=== PATIENT | male | born 1985 | race African-American/Black ===

== ENCOUNTER 2018-06-23 08:52 | Emergency (ER) | payer SELFPAY ==
[2018-06-23] MEDS ORDERED: Sodium Chloride 0.9% 10 ML Syringe FLUSH PRN (09:14)
[2018-06-23] MEDS ORDERED: Sodium Chloride 0.9% 2.5 ML Syringe FLUSH PRN (09:14)
[2018-06-23] MEDS ORDERED: Ketorolac 30 MG/ML SDV IVPUSH ONE (09:14)
[2018-06-23] MEDS ORDERED: Aspirin 81 MG Tab.Chew PO ONE (09:14)
--- NOTE | 2018-06-23 09:17 | EDM.PDOC ---
ED HPI GENERAL MEDICAL PROBLEM - General Chief Complaint: Chest Pain Stated Complaint: CHEST PAIN Time Seen by Provider: 06/23/18 09:09 - History of Present Illness INITIAL COMMENTS - FREE TEXT/NARRATIVE: HISTORY AND PHYSICAL: History of present illness: The patient is a healthy 32-year-old male with no cardiac or pulmonary disease who presents with complaints of midsternal chest discomfort which he describes as an achy and occasional sharp pain has been constant for 2 days. It does not radiate and is not associated with nausea vomiting shortness of breath or diaphoresis. The patient says he is very active and works in the [email or web address] and says with activity is never had chest pain before and this chest pain did not start specifically when he was doing activities but was gradual in onset. He says certain movements will make it worse. He has had a slight cough but no fevers and the cough is not productive. He's eating and drinking normally. He has no upper extremity weakness numbness or tingling. He's had no direct trauma other than his usual work. He has no significant social history but does say that his father had heart disease in his 40s and he thought maybe he had his first surgery at that time. He told the nurse that he was not sure if his father actually had a heart surgery so it is unclear to me which is actually a valid statement. The patient is eating and drinking normally and currently has says the pain is very mild and he has not been taking anything for the pain over -the-counter. He has no leg pain or swelling Review of systems: As per history of present illness and below otherwise all systems reviewed and negative. Past medical history: As per history of present illness and as reviewed below otherwise noncontributory. Surgical history: As per history of present illness and as reviewed below otherwise noncontributory. Social history: No reported history of drug or alcohol abuse. Family history: As per history of present illness and as reviewed below otherwise noncontributory. Physical exam: General: Well-developed well-nourished man who is nontoxic and vital signs are noted by me HEENT: Atraumatic, normocephalic, negative for conjunctival pallor or scleral icterus, mucous membranes moist, throat clear, neck supple, nontender, trachea midline. Lungs: Clear to auscultation, breath sounds equal bilaterally, chest with mild tenderness on palpation of the costochondral areas bilaterally in the upper chest wall but there is no lateral chest wall tenderness and there is no defects deformities or crepitus. When I palpate these areas the patient says this does reproduce his pain. He has no worker breathing wheezing or stridor Heart: S1S2, regular, negative for clicks, rubs, or JVD. Abdomen: Soft, nondistended, nontender. Negative for masses or hepatosplenomegaly. NABS Pelvis: Stable nontender. Genitourinary: Deferred. Rectal: Deferred. Extremities: Atraumatic, negative for cords or calf pain. Neurovascular unremarkable. No pedal edema or leg asymmetry Neuro: Awake, alert, oriented. Cranial nerves II through XII unremarkable. Cerebellum unremarkable. Motor and sensory unremarkable throughout. Exam nonfocal. Diagnostics: EKG CBC CMP troponin chest x-ray influenza swab Therapeutics: IV O2 monitor aspirin Toradol Patient was resting with eyes closed and sleeping on my reevaluation. He says his pain is much improved with the Toradol and aspirin. He confirms that he does have a provider back at home but he is here for work for the next 10 days. I've advised for observation admission due to his father's history although it feels very reproducible in character on my examination. He declines admission at this time saying that he has to get back to work and he will return for any problems or issues. He understands my concerns and accepts them. Impression: Atypical chest pain, musculoskeletal chest pain Definitive disposition and diagnosis as appropriate pending reevaluation and review of above. Chest pain Pain Score (Numeric/FACES): 6 - Related Data Allergies Allergy/AdvReac Type Severity Reaction Status Date / Time No Known Allergies Allergy Verified 06/23/18 09:05 Home Meds: Home Meds . [No Known Home Meds] 06/23/18 [History] Past Medical History - Past Health History Medical/Surgical History: Denies Medical/Surgical History - Infectious Disease History Infectious Disease History: Reports: None Social & Family History - Family History Family Medical History: Noncontributory - Tobacco Use Smoking Status *Q: Never Smoker - Caffeine Use Caffeine Use: Reports: Coffee - Recreational Drug Use Recreational Drug Use: No ED ROS GENERAL - Review of Systems Review Of Systems: ROS reveals no pertinent complaints other than HPI. ED EXAM, GENERAL - Physical Exam Exam: See Below (See dictation) Course - Vital Signs Last Recorded V/S: Last Vital Signs Temp 36.2 C 06/23/18 09:05 Pulse 87 06/23/18 09:05 Resp 15 06/23/18 09:05 BP 124/71 06/23/18 09:05 Pulse Ox 99 06/23/18 09:05 - Orders/Labs/Meds Orders: Active Orders 24 hr Category Date Time Status Cardiac Monitoring [RC] . DIRECTED Care 06/23/18 09:13 Active EKG Documentation Completion [RC] STAT Care 06/23/18 09:13 Active Oxygen Therapy, ED [RC] ASDIRECTED Care 06/23/18 09:13 Active Pulse Oximetry [RC] ASDIRECTED Care 06/23/18 09:13 Active Sodium Chloride 0.9% [Saline Flush] Med 06/23/18 09:14 Active 10 ml FLUSH ASDIRECTED PRN Sodium Chloride 0.9% [Saline Flush] Med 06/23/18 09:14 Active 2.5 ml FLUSH ASDIRECTED PRN Saline Lock Insert [OM.PC] Stat Oth 06/23/18 09:13 Ordered Medication Orders Sodium Chloride (Saline Flush) 10 ml FLUSH ASDIRECTED PRN PRN Reason: Keep Vein Open Last Admin: 06/23/18 09:19 Dose: 10 ml Sodium Chloride (Saline Flush) 2.5 ml FLUSH ASDIRECTED PRN PRN Reason: Keep Vein Open Last Admin: 06/23/18 09:19 Dose: 2.5 ml Labs: Laboratory Tests 06/23/18 06/23/18 Range/Units 09:00 09:00 WBC 5.15 (4.0-11.0) K/uL RBC 4.99 (4.50-5.90) M/uL Hgb 15.6 (13.0-17.0) g/dL Hct 43.7 (38.0-50.0) % MCV 87.6 (80.0-98.0) fL MCH 31.3 (27.0-32.0) pg MCHC 35.7 (31.0-37.0) g/dL RDW Std Deviation 39.1 (28.0-62.0) fl RDW Coeff of Myrtle 12 (11.0-15.0) % Plt Count 299 (150-400) K/uL MPV 10.20 (7.40-12.00) fL Neut % (Auto) 54.3 (48.0-80.0) % Lymph % (Auto) 36.3 (16.0-40.0) % [place] % (Auto) 7.4 (0.0-15.0) % Eos % (Auto) 1.6 (0.0-7.0) % Baso % (Auto) 0.4 (0.0-1.5) % Neut # (Auto) 2.8 (1.4-5.7) K/uL Lymph # (Auto) 1.9 (0.6-2.4) K/uL [place] # (Auto) 0.4 (0.0-0.8) K/uL Eos # (Auto) 0.1 (0.0-0.7) K/uL Baso # (Auto) 0.0 (0.0-0.1) K/uL Nucleated RBC % 0.0 /100WBC Nucleated RBCs # 0 K/uL Sodium 139 (136-148) mmol/L Potassium 3.8 (3.5-5.1) mmol/L Chloride 103 (98-107) mmol/L Carbon Dioxide 26.7 (21.0-32.0) mmol/L BUN 12 (7.0-18.0) mg/dL Creatinine 1.1 (0.8-1.3) mg/dL Est Cr Clr Drug Dosing 93.27 mL/min Estimated GFR (MDRD) > 60.0 ml/min Glucose 84 (74-106) mg/dL Calcium 9.1 (8.5-10.1) mg/dL Total Bilirubin 0.6 (0.2-1.0) mg/dL AST 26 (15-37) IU/L ALT 52 (14-63) IU/L Alkaline Phosphatase 79 (46-116) U/L Troponin I < 0.050 (0.000-0.056) ng/mL Total Protein 7.6 (6.4-8.2) g/dL Albumin 3.9 (3.4-5.0) g/dL Globulin 3.7 (2.6-4.0) g/dL Albumin/Globulin Ratio 1.1 (0.9-1.6) Meds: Medications Generic Name Dose Route Start Last Admin Trade Name Freq PRN Reason Stop Dose Admin Sodium Chloride 10 ml 06/23/18 09:14 06/23/18 09:19 Saline Flush FLUSH 10 ml ASDIRECTED PRN Administration Keep Vein Open Sodium Chloride 2.5 ml 06/23/18 09:14 06/23/18 09:19 Saline Flush FLUSH 2.5 ml ASDIRECTED PRN Administration Keep Vein Open Discontinued Medications Generic Name Dose Route Start Last Admin Trade Name Virgie PRN Reason Stop Dose Admin Aspirin 324 mg 06/23/18 09:14 06/23/18 09:19 Aspirin PO 06/23/18 09:15 324 mg ONETIME ONE Administration Ketorolac Tromethamine 30 mg 06/23/18 09:14 06/23/18 09:19 Toradol IVPUSH 06/23/18 09:15 30 mg ONETIME ONE Administration Departure - Departure Time of Disposition: 10:15 Disposition: Home, Self-Care 01 Condition: Good Clinical Impression: Atypical chest pain, Chest wall pain - Discharge Information Forms: ED Department Discharge Additional Instructions: The following information is given to patients seen in the emergency department who are being discharged to home. This information is to outline your options for follow-up care. We provide all patients seen in our emergency department with a follow-up referral. The need for follow-up, as well as the timing and circumstances, are variable depending upon the specifics of your emergency department visit. If you don't have a primary care physician on staff, we will provide you with a referral. We always advise you to contact your personal physician following an emergency department visit to inform them of the circumstance of the visit and for follow-up with them and/or the need for any referrals to a consulting specialist. The emergency department will also refer you to a specialist when appropriate. This referral assures that you have the opportunity for followup care with a specialist. All of these measure are taken in an effort to provide you with optimal care, which includes your followup. Under all circumstances we always encourage you to contact your private physician who remains a resource for coordinating your care. When calling for followup care, please make the office aware that this follow-up is from your recent emergency room visit. If for any reason you are refused follow-up, please contact the [facility] emergency department at and ask to speak to the emergency department charge nurse. [facility] Primary care- Internal Medicine and Family [address] [address] Try to use ice to areas after all physical activities and use [id number] ibuprofen/Motrin for pain and discomfort. Please call and schedule a follow-up appointment with your provider in the clinic or one of hours and return to ER as needed and as discussed - My Orders Last 24 Hours: My Active Orders 06/23/18 09:13 Cardiac Monitoring [RC] . DIRECTED EKG Documentation Completion [RC] STAT Oxygen Therapy, ED [RC] ASDIRECTED Pulse Oximetry [RC] ASDIRECTED Saline Lock Insert [OM.PC] Stat 06/23/18 09:14 Sodium Chloride 0.9% [Saline Flush] 10 ml FLUSH ASDIRECTED PRN Sodium Chloride 0.9% [Saline Flush] 2.5 ml FLUSH ASDIRECTED PRN - Assessment/Plan Last 24 Hours: My Active Orders 06/23/18 09:13 Cardiac Monitoring [RC] . DIRECTED EKG Documentation Completion [RC] STAT Oxygen Therapy, ED [RC] ASDIRECTED Pulse Oximetry [RC] ASDIRECTED Saline Lock Insert [OM.PC] Stat 06/23/18 09:14 Sodium Chloride 0.9% [Saline Flush] 10 ml FLUSH ASDIRECTED PRN Sodium Chloride 0.9% [Saline Flush] 2.5 ml FLUSH ASDIRECTED PRN
--- NOTE | 2018-06-23 09:54 | CR ---
INDICATION: Chest pain x2 days INDICATION: Chest pain. TECHNIQUE: Chest 1 view. COMPARISON: None FINDINGS: Cardiovascular and mediastinum: Heart size and vasculature are normal in caliber and appearance. Mediastinum is within normal limits. Lungs and pleural space: Lungs are clear. No sign of infiltrate or mass. No sign of pleural effusion. No pneumothorax. Bones and soft tissues: No significant findings. IMPRESSION: Lungs are clear. Dictated by Laci Herrera MD @ 06/23/2018 9:52:23 AM Dictated by: Laci Herrera MD @ 06/23/2018 09:52:29 (Electronically Signed)
[2018-06-23 09:56] LABS: CHLORIDE,CL 103 mmol/L (98-107); SODIUM,NA 139 mmol/L (136-148)
== END 2018-06-23 10:30 | disposition home or self-care (01) ==
LOC: MW.ED 08:52
DX: R07.2 Precordial pain (principal)
CPT/HCPCS: 71045; 80053; 84484; 85025; 87804; 93005; 96374; 99285; A9270; J1885; 99284